=== PATIENT | male | born 1955 | race Caucasian/White ===

== ENCOUNTER 2022-05-10 22:11 | Observation (INO) ==
[2022-05-11 00:24] LABS: ABG Base Excess 3.5 MMOL/L (-2.5-2.5); ABG HCO3 27.6 MMOL/L (20-26); ABG Oxygen Saturation 98.4 % (95-100); ABG PH 7.434 (7.35-7.45); ABG TCO2 24.3 MMOL/L (23-27)
[2022-05-11 00:32] LABS: Basophils # 0.1 10*3/uL (0.0-0.2); Basophils % 1.4 % (0.0-0.8); Eosinophils # 0.2 10*3/uL (0.0-0.87); Eosinophils % 5.3 % (0.00-10.9); Hematocrit 42.5 VOL% (42.0-52.0); Immature Granulocytes % 0.2 %; Immature Granulocytes Absolute 0.01 #; Lymphocytes # 1.9 10*3/uL (1.4-4.0); Lymphocytes % 42.9 % (21.2-54.2); Mean Corpuscular HGB Conc 32.9 GM/DL (32-36); Mean Corpuscular Volume 91.6 FL (87-102); Mean Platelet Volume 10.2 FL (9.6-12.0); Monocytes # 0.6 10*3/uL (0.11-0.8); Monocytes % 12.6 % (1.7-12.7); Neutrophils % 37.6 % (38.7-73.9); Platelet Count 217 T/CUMM (130-400); Red Blood Count 4.64 MC/CUMM (3.8-5.5); Red Cell Distribution Width 13.6 % (9.3-17.3); White Blood Count 4.4 T/CUMM (4-12)
[2022-05-11 01:09] LABS: Albumin 3.2 G/DL (3.4-5.0); Bilirubin,Total 0.4 MG/DL (0.20-1.00); Calcium 8.9 MG/DL (8.5-10.1); Osmolality,Calculated 278.8 MOS/KG (273-304); Potassium 3.4 MMOL/L (3.5-5.1); Total Protein 6.8 G/DL (6.4-8.2)
[2022-05-11] MEDS ORDERED: ONDANSETRON 4 MG/2 ML VIAL IV PRN (01:25)
[2022-05-11] MEDS ORDERED: MELATONIN 3 MG TABLET PO PRN (01:25)
[2022-05-11] MEDS ORDERED: AZITHROMYCIN INJ 500 MG in SODIUM CHLORIDE 0.9% 250 ML IV ONE (01:25)
[2022-05-11] MEDS ORDERED: ACETAMINOPHEN 325 MG TABLET PO PRN (01:25)
[2022-05-11] MEDS ORDERED: guaiFENesin/CODEINE 5 ML LIQUID PO PRN (01:33)
[2022-05-11] MEDS: SODIUM CHLORIDE 0.9% 1,000 ML IV SCH ×2 (02:20→17:47)
[2022-05-11] MEDS ORDERED: guaiFENesin 200 MG/10 ML UDCUP PO PRN (03:47)
[2022-05-11] MEDS ORDERED: ALPRAZolam 0.5 MG TABLET PO ONE (03:47)
[2022-05-11] MEDS ORDERED: POTASSIUM CHLORIDE 20 MEQ TABLET PO ONE (07:18)
[2022-05-11 08:03] LABS: Basophils # 0.1 10*3/uL (0.0-0.2); Basophils % 1.3 % (0.0-0.8); Eosinophils # 0.2 10*3/uL (0.0-0.87); Eosinophils % 5.5 % (0.00-10.9); Hematocrit 40.6 VOL% (42.0-52.0); Hemoglobin 12.9 GM/DL (14.0-18.0); Lymphocytes # 1.7 10*3/uL (1.4-4.0); Lymphocytes % 45.1 % (21.2-54.2); Mean Corpuscular HGB Conc 31.8 GM/DL (32-36); Mean Corpuscular Volume 93.5 FL (87-102); Mean Platelet Volume 9.6 FL (9.6-12.0); Monocytes # 0.5 10*3/uL (0.11-0.8); Monocytes % 14.2 % (1.7-12.7); Neutrophils % 33.9 % (38.7-73.9); Platelet Count 186 T/CUMM (130-400); Red Blood Count 4.34 MC/CUMM (3.8-5.5); Red Cell Distribution Width 13.8 % (9.3-17.3); White Blood Count 3.8 T/CUMM (4-12)
[2022-05-11] MEDS: ENOXAPARIN 40 MG/0.4 ML SYRINGE SUBCUT SCH (08:10)
[2022-05-11] MEDS: ALPRAZolam 0.5 MG TABLET PO SCH ×2 (08:11→20:49)
[2022-05-11] MEDS: CHOLECALCIFEROL 1,000 UNIT TABLET PO SCH (08:11)
[2022-05-11] MEDS: ZINC GLUCONATE 50 MG TABLET PO SCH (08:11)
[2022-05-11] MEDS: NEBIVOLOL 5 MG TABLET PO SCH (08:11)
[2022-05-11] MEDS: VALSARTAN 80 MG TABLET PO SCH (08:11)
[2022-05-11] MEDS: DEXAMETHASONE 4 MG/1 ML VIAL IV SCH (08:11)
[2022-05-11] MEDS: hydroCHLOROthiazide 12.5 MG CAPSULE PO SCH (08:12)
[2022-05-11] MEDS: ATORVASTATIN 10 MG TABLET PO SCH (08:12)
[2022-05-11] MEDS: FAMOTIDINE 20 MG TABLET PO SCH ×2 (08:12→20:49)
[2022-05-11] MEDS: CETIRIZINE 10 MG TABLET PO SCH (08:12)
[2022-05-11] MEDS: TAMSULOSIN 0.4 MG CAPSULE PO SCH (08:12)
[2022-05-11] MEDS: ASCORBIC ACID 500 MG TABLET PO SCH ×2 (08:12→20:49)
[2022-05-11 08:25] LABS: Bilirubin,Total 0.5 MG/DL (0.20-1.00); Calcium 8.5 MG/DL (8.5-10.1); Ferritin 233.4 ng/mL (26-388); Osmolality,Calculated 284.4 MOS/KG (273-304); Potassium 3.5 MMOL/L (3.5-5.1); Total Protein 6.4 G/DL (6.4-8.2)
[2022-05-11 08:28] LABS: Atypical Lymphocytes 1+; Band Neutrophils 1 % (0-10); Eosinophils 6 % (0-10); Lymphocytes 48 % (20-55); Macrocytosis Slight; Platelet Estimate Normal; Total Cells Counted 100
[2022-05-11] MEDS ORDERED: TAMSULOSIN 0.4 MG CAPSULE PO SCH (09:00)
[2022-05-11 09:32] LABS: Sedimentation Rate-Westergren 54 MM/HR (0-20)
[2022-05-12] MEDS: SODIUM CHLORIDE 0.9% 1,000 ML IV SCH (05:53)
[2022-05-12 05:58] LABS: Hematocrit 37.4 VOL% (42.0-52.0); Hemoglobin 12.1 GM/DL (14.0-18.0); Immature Granulocytes % 0.2 %; Immature Granulocytes Absolute 0.01 #; Mean Corpuscular HGB Conc 32.4 GM/DL (32-36); Mean Corpuscular Volume 93.3 FL (87-102); Mean Platelet Volume 9.6 FL (9.6-12.0); Monocytes # 0.4 10*3/uL (0.11-0.8); Monocytes % 9.3 % (1.7-12.7); Neutrophils % 69.5 % (38.7-73.9); Platelet Count 193 T/CUMM (130-400); Red Blood Count 4.01 MC/CUMM (3.8-5.5); Red Cell Distribution Width 13.6 % (9.3-17.3); White Blood Count 4.6 T/CUMM (4-12)
[2022-05-12 06:22] LABS: Calcium 8.1 MG/DL (8.5-10.1); Ferritin 214.7 ng/mL (26-388); Osmolality,Calculated 285.3 MOS/KG (273-304)
[2022-05-12] MEDS: NEBIVOLOL 5 MG TABLET PO SCH (08:55)
[2022-05-12] MEDS: ENOXAPARIN 40 MG/0.4 ML SYRINGE SUBCUT SCH (08:56)
[2022-05-12] MEDS: ATORVASTATIN 10 MG TABLET PO SCH (08:56)
[2022-05-12] MEDS: TAMSULOSIN 0.4 MG CAPSULE PO SCH (08:56)
[2022-05-12] MEDS: hydroCHLOROthiazide 12.5 MG CAPSULE PO SCH (08:56)
[2022-05-12] MEDS: VALSARTAN 80 MG TABLET PO SCH (08:56)
[2022-05-12] MEDS: ASCORBIC ACID 500 MG TABLET PO SCH (08:57)
[2022-05-12] MEDS: CETIRIZINE 10 MG TABLET PO SCH (08:57)
[2022-05-12] MEDS: CHOLECALCIFEROL 1,000 UNIT TABLET PO SCH (08:57)
[2022-05-12] MEDS: FAMOTIDINE 20 MG TABLET PO SCH (08:57)
[2022-05-12] MEDS: ALPRAZolam 0.5 MG TABLET PO SCH (08:57)
[2022-05-12] MEDS: ZINC GLUCONATE 50 MG TABLET PO SCH (08:57)
[2022-05-12] MEDS: DEXAMETHASONE 4 MG/1 ML VIAL IV SCH (08:58)
[2022-05-12] MEDS ORDERED: AZITHROMYCIN INJ 500 MG in SODIUM CHLORIDE 0.9% 250 ML IV SCH (09:00)
[2022-05-12 13:00] VITALS: BP 104/69
== END 2022-05-12 16:34 | disposition home or self-care (01) ==
LOC: N.EDINP 22:11 → N.ED 22:11 → SUATTDRO 05-11 01:25 → N.EDINP 05-11 02:06 → N.2E 05-11 02:28
PROVIDERS: ADMIT Hospitalist; ATTEND Internal Medicine